=== PATIENT | male | born 1945 | race Caucasian/White ===

== ENCOUNTER → 2016-12-26 | Outpatient (CLI) | payer OTHER ==
[~2016-12-26] VITALS: Ht 177.8 cm; Wt 68.0 kg
[~2016-12-26] MED LIST: CARAFATE 1 GM TA1 G1 PO; CENTRUM SILVER1 EAC4 PO; CLONAZEPAM 1 MG1 M1 PO; FLOMAX0.4 MG PO; NEXIUM40 MG PO; VENLAFAXIN75 MG/1 T2 PO; VITAMIN D400 UNIT PO; VITAMIN E400 UNIT PO
--- NOTE | ~2016-12-26 | P ---
[facility] [place] [address] PROCEDURE REPORT Name: JESSICA TURCIOS Room #: [facility] [id number] Admission: 12/26/16 Attend Phys: Mike Cornelius MD Discharge: Date of : 49 Report #: [id number] THIS REPORT FOR: //name// CC: Mike Cornelius UPPER ENDOSCOPY REPORT DATE OF SERVICE: 12/26/2016. BRIEF HISTORY: The patient is a 71-year-old male with a history of achalasia with Heller myotomy done in the 1969 and he also had gastric surgery in the past as well. The patient recently has had increasing difficulty with dysphagia, which has been progressively worsening the past several months. PREOPERATIVE DIAGNOSIS: Achalasia with worsening dysphagia. POSTOPERATIVE DIAGNOSES: 1. Achalasia with retained solids and liquids in the esophagus. 2. Large esophageal diverticulum. 3. Diffuse gastritis. 4. 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 5. Retained material in the stomach consistent with gastroparesis. MEDICATIONS: Deep sedation with propofol per anesthesia. SPECIMEN: Biopsies of squamocolumnar junction, rule out Edwards esophagus. ESTIMATED BLOOD LOSS: 3 mL. PROCEDURE: EGD with dilation of the esophagus over a guidewire, with Savary dilation of the esophagus over the guidewire and biopsy distal esophagus. FINDINGS: Prior to propofol sedation, procedure of upper endoscopy was reviewed with the patient as well potential risks and its complications. He indicates he understands and desires to proceed. DESCRIPTION OF PROCEDURE: With the patient in left lateral decubitus position, the crowdSPRINGi video endoscope was inserted in the cervical esophagus under direct vision without difficulty. As we advanced the scope in the esophagus, he was noted to have a markedly dilated esophagus consistent with achalasia. As we advanced the scope in the mid to distal esophagus, there was a large pool of liquidy material as well as a semisolid material floating on the fluid. A completely obscured lumen. Very carefully we were able the suctioned away much of the liquid, but not every last bit of it could be removed, especially the semisolid and solid material. However, this allowed better visualization of the [facility] [address] [place] [address] PROCEDURE REPORT Name: TAMJESSICA MAGDALENO [id number] Admission: 12/26/16 Attend Phys: Mike Cornelius MD Discharge: Date of : 49 Report #: [id number] distal esophagus. The mucosa was intact. The distal esophagus was a very tortuous in the region of the gastroesophageal junction. We then very carefully work the scope through this area and finally identify the GE junction advance the scope into the stomach. This patient has a history of gastroparesis. There was retained material the stomach as well. This limited views of the stomach. The stomach was examined on end view as well as retroflexed views. He had a diffuse gastritis. There was no evidence of outlet obstruction. No mass lesions were seen in the cardia. There appeared to be a Billroth 1 reconstruction. The scope was advanced in the small bowel, which was normal. At this point, a guidewire was passed through the biopsy channel scope and scope withdrawn over the wire, we passed a 51-[place]ammar[place] Savary dilator over the wire without difficulty. There was no resistance. The scope was then inserted along site of the guidewire and the distal esophagus was examined. There was still liquidy material and amorphous material. However, after dilation I was able to obtain better view of the GE junction area. On this occasion, a pseudodiverticulum was seen in the distal esophagus; however, there appeared to be an orifice, which initially looks like a small bowel limb in the region of the GE junction. We entered this orifice and went into a large esophageal diverticulum. The mucosa within the diverticulum was unremarkable. We then, as careful as we could, examined the squamocolumnar junction, which was noted. I could not see the entire squamocolumnar junction, portions of were seen. It is noted in the past with the patient has had a question of Edwards esophagus, therefore, biopsies obtained along the squamocolumnar junction and no mass lesions or ulcers were seen. At that point, the scope was slowly withdrawn and careful circumferential views were obtained. The scope and guidewire withdrawn. The patient tolerated the procedure well. CONDITION OF THE PATIENT UPON DISCHARGE: Following procedure, the patient drowsy and will be discharged home when fully ambulatory. INSTRUCTIONS TO THE PATIENT AND FAMILY AT THE TIME OF DISCHARGE: Difficult intubation this patient with achalasia and previous Heller myotomy. We will follow up on biopsies obtained today. Anatomy is a little difficulty in the region of the GE junction, especially the course of the esophagus. I do not see any obstructing lesions. It is not clear how much of the role the large diverticulum has with his current symptoms. Again, we will obtain barium esophagram. The patient may need referral to tertiary center for further management of his achalasia with multiple complications as described. We will make further recommendations for the patient after review of barium esophagram and the biopsies. By: [id number] Mike Cornelius MD /nt
--- NOTE | ~2016-12-26 | S ---
[facility] [address] [place] [address] SURGICAL PATH RPT PROCEDURE Name: JESSICA TURCIOS Room #: REG MATEO Bautista#: [id number] Admission: 12/26/16 Date of : 49 Discharge: Report #: [id number] Path Case #: [id number] PATHOLOGY REPORT DRAFT COLLECTION DATE: 12/26/2016 RECEIVED DATE: 12/26/2016 SPECIMEN(S) RECEIVED: Abdirashid of distal esophagus
== END | disposition home or self-care (01) ==
LOC: GI 08:24
DX: K22.5 Diverticulum of esophagus, acquired (principal); K22.0 Achalasia of cardia; K29.70 Gastritis, unspecified, without bleeding; K31.89 Other diseases of stomach and duodenum; N40.0 Benign prostatic hyperplasia without lower urinary tract symptoms; Z98.890 Other specified postprocedural states; Z87.891 Personal history of nicotine dependence; Z87.442 Personal history of urinary calculi
CPT/HCPCS: 62110; 62900